=== PATIENT | male | born 1970 | race Caucasian/White ===

== ENCOUNTER 2016-08-06 22:46 | Emergency (ER) | payer OTHER ==
[~2016-08-06] VITALS: Ht 182.9 cm; Wt 100.0 kg
[~2016-08-06 22:46] MED LIST: CLON0.1T14 PO; KEP500TA PO; METO-274 PO
[2016-08-06 23:01] VITALS: BP 159/104; PULSE 123; RESP 20; O2SAT 96
--- NOTE | 2016-08-06 23:40 | ED.REPORT ---
HPI-Psychiatric Illness Date of Service Aug 06, 2016 ED Provider: Javier Coe DO Patient is a 46 year old male with a history of hypertension, anxiety, alcohol abuse, suicidal ideations, seizure disorder and depression who presents to the ED due to ongoing suicidal ideations. He reports that his depression and suicidal ideations started 3 years ago after his brother . Patient came in to the ED today because his girlfriend told him if he didn't get help and stop drinking, she was going to leave him. He reports that he usually drinks a 6 pack of beer. The patient also complains of left arm weakness and numbness for the past week. He states that he went to the fire department 3 days ago and they told him he was fine. Nursing Notes Stated Complaint: SUICIDAL IDEATION Chief Complaint: Psychiatric Complaint Nursing Notes Reviewed: Yes Allergies: Coded Allergies: No Known Allergies (Verified Allergy, Unknown, 09/26/13) Scheduled Clonidine (Catapres) 0.1 Mg Tablet 0.1 MG PO BID Levetiracetam (Keppra) 500 Mg Tablet 500 MG PO BID Metoprolol Succinate ER (Metoprolol Succinate ER) 100 Mg Tab.er.24h 100 MG PO DAILY General Time Seen by MD: 23:39 Chief Complaint Suicidal ideation Hx Obtained From: Patient Arrived By: Walk-in Onset Occurred: More than a week ago... (>6 months) Recent Healthcare: No recent doctor visit, No recent hospitalization Similar Sx Previous: Yes Risk-Psychiatric Illness Suicide Risk Stratification Suicide Risk Factors - Adult: : Alcohol use: Previous attempt RF Statements: Risk factors reviewed Past Medical History Past Medical History Per EMR: 1. Alcohol dependence with history of alcohol withdrawal seizures 2. Hypertension 3. Chronic active hepatitis C due to IV drug use Reports: GERD Past Surgical History Denies Smoking History Former Smoker Social History Alcohol Use: >5 per day Drug Use: THC Other Social History: Homeless Ambulatory Status Independent Review of Systems Constitutional: Denies: Chills, Fever Respiratory: Denies: Non-productive cough, Shortness of breath Skin: Denies Itching, Denies Rash Neurologic: Reports: Numbness, Weakness Psychiatric: Reports: Depression, Suicidal ideation Complete sys rev & neg: except as marked. Physical Exam Initial Vital Signs Vital Signs (First) Date Time Temp Pulse Resp B/P Pulse Ox O2 Delivery O2 Flow Rate FiO2 08/06/16 23:01 37.3 123 20 159/104 96 Room Air Initial VS: Reviewed General/Constitutional: Awake, Alert, No acute distress Alertness: Positive: Lethargic Appearance / Presentation: Positive: Appears older than age slurred speech Neurologic: Oriented X3, No motor deficits, No sensory deficits Head / Eyes: Atraumatic, Normocephalic, PERRL, EOMI, No nystagmus, No periorbital redness ENT: Atraumatic, Airway patent, Mucous membranes moist Respiratory / Chest: Atraumatic, Breath sounds NL, Breath sounds = bilat Cardiovascular: Heart rate NL, Regular rhythm, Heart sounds NL, No gallop, No murmurs, No rubs Abdomen: Atraumatic, Soft, Non-tender Skin: Atraumatic, Color NL, No rash, Warm, Dry Interpretation & Diagnostics Lab Results Interpretation Result Diagram: 08/07/16 0002 08/07/16 0002 Test 08/07/16 00:02 08/07/16 00:49 White Blood Count 6.7th/mm3 (3.8-10.1) Red Blood Count 3.95mil/mm3 (4.40-5.80) Hemoglobin 13.5g/dL (13.8-17.2) Hematocrit 37.1% (41.0-50.0) Mean Corpuscular Volume 93.9fL (81-100) Mean Corpuscular Hemoglobin 34.2pg (27.0-35.0) Mean Corpuscular Hemoglobin Concent 36.4% (32.0-37.0) Red Cell Distribution Width 11.5% (12.3-15.4) Platelet Count 116bil/L (150-400) Neutrophils (%) (Auto) 43.3% (40-74) Lymphocytes (%) (Auto) 45.5% (14-46) Monocytes (%) (Auto) 9.5% (4-12) Eosinophils (%) (Auto) 0.7% (0-5) Basophils (%) (Auto) 0.9% (0-3) Sodium Level 130mEq/L (134-144) Potassium Level 3.1mEq/L (3.5-5.2) Chloride Level 83mEq/L (97-108) Carbon Dioxide Level 22mmol/L (18-29) Blood Urea Nitrogen 4mg/dL (6-24) Creatinine 0.57mg/dL (0.76-1.27) Estimat Glomerular Filtration Rate 163mL/min (>59) Glucose Level 122mg/dL (60-99) Calcium Level 8.7mg/dL (8.5-10.1) Total Bilirubin 1.1mg/dL (0.0-1.2) Aspartate Amino Transf (AST/SGOT) 136U/L (0-50) Alanine Aminotransferase (ALT/SGPT) 86U/L (0-44) Alkaline Phosphatase 82U/L (25-150) Total Protein 7.9g/dL (6.4-8.4) Albumin 4.6g/dL (3.4-5.0) Thyroid Stimulating Hormone (TSH) 3.710uIU/mL (0.450-4.500) Hold Calderón Top Tube Received (Received) Hold Urine Received (Received) ECG Interpretation ECG Interpretation: sinus tachycardia, rate [address] segments unchanged from prior Time: 00:21 CT Head Interpretation CONCLUSION: No CT evidence of hemorrhage, mass or acute infarct. at 0152 Interpretation / Wet Read by: Interpret - Radiologist Re-Eval/Medical Decision Med Decision/Clinical Course Assumed care at 6 AM, the patient is now legally sober and has been seen by social work. The patient is not an imminent risk of harm to himself or others. He is given outpatient resources. Return and follow-up precautions given Patient was intoxicated and came in with soft suicidal ideations. Plan for web content & social media manager evaluation in the morning and after the patient reaches a legal limit of blood alcohol. Patient's care was transferred to Dr. Ramirez. Dr. Ramirez 0600 hrs.: This patient was originally worked up by Dr. Harmon turned over to me at change of shift. He slept throughout my entire shift and his care is now being turned over to Dr. Jesus Salamanca. Discharge & Departure Shift Change Sign-Out Patient Care Transferred: Yes Discussed Complaint(s): Yes Impression: Primary Impression: Acute situational disturbance Additional Impression: Alcohol abuse Discharge Condition All VS Reviewed: Yes Condition: Stable Referrals: Raul Barajas MD (PCP) Care Transferred to: Dr. Ramirez Care Transferred at: 03:00 Scribe Attestation Portions of this note were transcribed by Sharron Stone. I, Dr. Coe personally performed the history, physical exam and medical decision-making; I reviewed and confirmed the accuracy of the information in the transcribed note. Signed by: Sharron Stone, Joyce, 08/07/16 and 0300 copies to: Raul Barajas MD, Todd P DO Aug 06, 2016 23:40 Nancy Stone Aug 06, 2016 23:58 Madhav Ramirez MD Aug 07, 2016 07:00 Jesus Salamanca DO Aug 07, 2016 15:51
[2016-08-07 00:13] LABS: BASOPHILS % (AUTO) 0.9 % (0-3); EOSINOPHILS % (AUTO) 0.7 % (0-5); MONOCYTES % (AUTO) 9.5 % (4-12); Mean Corpuscular Hemoglobin 34.2 pg (27.0-35.0); Mean Corpuscular Volume 93.9 fL (81-100); NEUTROPHILS % (AUTO) 43.3 % (40-74); Platelet Count 116 bil/L (150-400)
[2016-08-07] MEDS ORDERED: Potassium Chloride 20 mEq SR Tablet PO ONE (03:25)
--- NOTE | 2016-08-07 09:03 | DRSVH ---
PROCEDURE: CT BRAIN WITHOUT CONTRAST ([id number]) INDICATIONS: weak left arm, etoh TECHNIQUE: Noncontrast 4.5 mm thick angled axial sections acquired from the foramen magnum to the vertex, with c oronal reformats. COMPARISON: [facility], CT, BRAIN W/O CONTRAST, 06/15/2014, 16:00. FINDINGS: Image quality: Excellent. CSF spaces: Basal cisterns are patent. No extra-axial fluid collections. Ventricles are normal in size and shape. Brain: No midline shift. No intracranial masses or hemorrhage. Burrows-white matter interface is norm al. Skull and face: Calvarium and visualized facial bones are intact, without suspicious lesions. Sinuses: Visualized sinuses and mastoids are clear. IMPRESSION: No acute disease comment source of current symptoms is not seen. Dictated by: Yasmani Brush M.D. on 08/07/2016 at 9:00 Approved by: Yasmani Brush M.D. on 08/07/2016 at 9:01
[2016-08-07 09:05] VITALS: BP 149/91; PULSE 107; RESP 16; O2SAT 96
[2016-08-07 11:57] VITALS: BP 163/110; PULSE 123; RESP 16; O2SAT 97
== END 2016-08-07 11:58 | disposition home or self-care (01) ==
LOC: SED 22:46
DX: F43.0 Acute stress reaction (principal); F10.10 Alcohol abuse, uncomplicated; I10 Essential (primary) hypertension; F41.9 Anxiety disorder, unspecified; F32.9 Major depressive disorder, single episode, unspecified; R53.1 Weakness; K21.9 Gastro-esophageal reflux disease without esophagitis; Z86.19 Personal history of other infectious and parasitic diseases; Z87.891 Personal history of nicotine dependence; Z59.0 Homelessness